=== PATIENT | female | born 1990 | race Caucasian/White ===

== ENCOUNTER → 2017-07-21 16:24 | Outpatient (CLI) | payer OTHER, SELFPAY ==
[2017-07-22 16:53] LABS: Strep Grp B PCR NEG for Grp B Strep
== END ==
PROVIDERS: Family Provider Obstetrics & Gynecology; Visit Provider Obstetrics & Gynecology
DX: Z34.82 Encounter for supervision of other normal pregnancy, second trimester (principal)
CPT/HCPCS: 87653

== ENCOUNTER 2017-08-25 08:36 | Outpatient (CLI) | payer OTHER, SELFPAY ==
--- NOTE | 2017-08-25 09:40 | PM.OBTRLD ---
Evaluation Evaluation Baseline heart rate: 135 Variability: Moderate (11-25) monitor accelerations: Present monitor decelerations: Absent
== END 2017-08-25 09:49 | disposition home or self-care (01) ==
LOC: LABOR 09:15 → OB 08-26 09:20
PROVIDERS: Family Provider Obstetrics & Gynecology; Visit Provider Obstetrics & Gynecology
DX: Z34.92 Encounter for supervision of normal pregnancy, unspecified, second trimester (principal)
CPT/HCPCS: 59025; G0378; G0379

== ENCOUNTER 2017-08-26 11:28 | Inpatient (IN) | payer OTHER, SELFPAY ==
[2017-08-26] MEDS: LACTATED RINGERS 1,000 ML 125 ML IV ×2 (13:00→18:57)
[2017-08-26 13:03] LABS: Add Manual Diff / Slide Review NO; Basophils Percent Auto 0.3 % (0-2); Eosinophils Percent Auto 1.9 % (2-4); Hematocrit 34.7 % (36-46); Mean Corpuscular HGB Conc 34.5 % (30-36); Mean Corpuscular Hemoglobin 32.1 PG (26-34); Mean Corpuscular Volume 93.2 fL (80-100); Monocytes Percent Auto 5.2 % (3-14); Neutrophils Absolute Auto 9200 /uL (3000-5900); Neutrophils Percent Auto 77.6 % (50-75); Platelet Count 168 X10^3/uL (150-400); Red Blood Cell Count 3.73 X10^6/uL (4.0-5.2); Red Cell Distribution Width 13.7 % (11.6-14.8); White Blood Cell Count 11.9 X10^3/uL (4.5-11.0)
[2017-08-26 15:46] VITALS: BP 114/75
--- NOTE | 2017-08-26 18:04 | PM.OBHP.1 ---
OB HPI Date/Time Date of admission: 08/26/17 Date Patient Seen: 08/26/17 Time Patient Seen: 11:04 History of Present Illness Chief complaint: LABOR : 3 Para: 1 Estimated Date of Delivery: 08/21/17 Estimated Gestational Age (weeks): 40+ 5 Narrative: Alta Rivero is a 27 year old female 3 para 1 at 40-,5/7 weeks gestation for induction of labor Indications Indication for induction OB: post dates History of Present care: good care Dating criteria: LMP confirmed by 1st trimester US Ultrasounds: normal 1st trimester US and normal mid trimester US Obstetrical complications: none Medical complications: none Preadmission Labs Blood type: O (+) positive -: Antibody screen: negative, GBS status: negative, HBsAG: negative, HIV: negative, HSV 1: negative, HSV 2: negative and RPR/VDLR: negative -: Chlamydia screen: not detected and Gonorrhea screen: not detected -: Rubella: immune and Varicella: immune HCT: 34.3 HCAB: negative Quad screen: Normal Urine: Negative 1 hr GTT: 128 Prior (ies) History: 1 spontaneous vaginal delivery 7 lb 9 oz boy 1 miscarriage Evaluation Evaluation Baseline heart rate: 130 Variability: Moderate (11-25) monitor accelerations: Present monitor decelerations: Absent Category of Tracing: I Cervical dilation (cm): 1 Cervical effacement (%): 80 station: -2 Laboratory results: Laboratory Tests 08/26/17 08/26/17 12:50 12:50 WBC 11.9 H RBC 3.73 L Hgb 12.0 Hct 34.7 L MCV 93.2 MCH 32.1 MCHC 34.5 RDW 13.7 Plt Count 168 Neut % (Auto) 77.6 H Lymph % (Auto) 15.0 L [place] % (Auto) 5.2 Eos % (Auto) 1.9 L Baso % (Auto) 0.3 Neut # (Auto) 9200 H Blood Type O Positive Antibody Screen Negative [facility] Social History Smoking Status: Never smoker Exam Vital Signs (past 8 hours): - 08/26/17 15:46 Blood Pressure 114/75 Narrative Exam Narrative: Generally: Well-developed, well-nourished white female, no acute distress Fundal height: 41 cm Estimated weight: 8 lb Extremities: Trace edema, negative Homans Objective Labs Result Diagrams: 08/26/17 12:50 Labs: Laboratory Results - last 24 hr 08/26/17 08/26/17 12:50 12:50 WBC 11.9 H RBC 3.73 L Hgb 12.0 Hct 34.7 L MCV 93.2 MCH 32.1 MCHC 34.5 RDW 13.7 Plt Count 168 Neut % (Auto) 77.6 H Lymph % (Auto) 15.0 L [place] % (Auto) 5.2 Eos % (Auto) 1.9 L Baso % (Auto) 0.3 Neut # (Auto) 9200 H Blood Type O Positive Antibody Screen Negative Assessment and Plan (1) 40 weeks gestation of : Current visit: Yes Status: Acute Plan: Plan: Assessment: 27-year-old 3 para 1 at 40-,5/7 weeks gestation for induction of labor Plan: Pitocin per protocol 2 Expectant management to spontaneous vaginal delivery
[2017-08-27] MEDS: miSOPROStol 25 MCG TABLET VAG ×2 (00:10→04:26)
--- NOTE | 2017-08-27 09:34 | PM.OBPNLAB ---
Date/Time Date Patient Seen: 08/27/17 Time Patient Seen: 07:35 Pain Control Pain control: tolerating well Pelvic Exam Dilation (cm): 3 Effacement (%): 90 station: -2 Amniotic membrane status: Ruptured Comments: SROM - clear Contractions Contraction pattern: Regular Contraction intensity: Strong/Firm Status status: Category l Assessment and Plan Assessment: active labor Plan: continuous present management
--- NOTE | 2017-08-27 17:22 | PM.OBPRVD ---
Narrative: Patient is a [id number]- G3P-2 who presented at 40 and 5 7 weeks gestation for induction of labor. Day prior to delivery, Pitocin was given with minimal change in her cervix. Patient did receive 2 doses of Cytotec last evening, which did affect change. At 0738 patient had spontaneous rupture of membranes of clear fluid. Patient continued to contract, but did require oxytocin to a maximum of 2 milliunits. Patient quickly progressed from about 3 and 0.5 cm to complete. Patient began stage II of labor at 12 o'clock, and began pushing at approximately 12:30 p.m. patient delivered a healthy female at 12:41 p.m.. did have a nuchal cord which was reduced at the perineum. Patient sustained a second-degree laceration which was repaired with 3 0 chromic. Patient received a oxytocin bolus immediately after delivery of the . Placenta delivered at 12:52 p.m. intact. Estimated blood loss was approximately 250 mL. Patient tolerated the procedure well.
[2017-08-28] MEDS: IBUPROFEN 600 MG TABLET PO (00:59)
[2017-08-28 06:52] LABS: Add Manual Diff / Slide Review NO; Basophils Percent Auto 0.3 % (0-2); Hematocrit 32.7 % (36-46); Hemoglobin 11.5 g/dL (12.0-16.0); Lymphocytes Percent Auto 17.8 % (25-40); Mean Corpuscular Hemoglobin 32.6 PG (26-34); Mean Corpuscular Volume 93.2 fL (80-100); Monocytes Percent Auto 6.4 % (3-14); Neutrophils Absolute Auto 7800 /uL (3000-5900); Neutrophils Percent Auto 73.5 % (50-75); Platelet Count 143 X10^3/uL (150-400); Red Blood Cell Count 3.51 X10^6/uL (4.0-5.2); Red Cell Distribution Width 13.5 % (11.6-14.8); White Blood Cell Count 10.6 X10^3/uL (4.5-11.0)
--- NOTE | 2017-08-28 09:34 | PM.OBDS.1 ---
Discharge Providers Date of admission: 08/26/17 11:28 Consults: 08/27/17 13:26 Consult to [employer] Routine Comment: Discharge provider: Mari Mir MD Discharge Date: 08/28/17 Summary Date Patient Seen: 08/28/17 Time Patient Seen: 07:35 Peripartum Data Infant Delivery Method: Natural Vaginal Procedures: Spontaneous vaginal delivery complications: none Discharge Diagnosis (1) 40 weeks gestation of : Status: Acute (2) Normal spontaneous vaginal delivery: Status: Acute Status at Discharge Functional status at discharge: independent ambulation Overall status at discharge: patient is progressing back to baseline Time Spent with Patient Total time spent providing and/or coordinating discharge services: 20 min Objective Labs Result Diagrams: 08/28/17 06:35 Labs: Laboratory Results - last 24 hr 08/28/17 06:35 WBC 10.6 RBC 3.51 L Hgb 11.5 L Hct 32.7 L MCV 93.2 MCH 32.6 MCHC 35.0 RDW 13.5 Plt Count 143 L Neut % (Auto) 73.5 Lymph % (Auto) 17.8 L [place] % (Auto) 6.4 Eos % (Auto) 2.0 Baso % (Auto) 0.3 Neut # (Auto) 7800 H Discharge Plan Discharge Plan Patient Disposition: Home, Self-Care Discharge comment: Call with fever, chills or bleeding vaginally more than a pad in an hour Ibuprofen 600mg every 6 hours as needed for cramping Discharge Med Rec/Prescriptions Prescriptions: No Action No Known Home Medications RF: 0 Follow up/Referrals: Mari Mir MD [Family Provider] - 6 Weeks Provider Discharge Instructions Diet: Diet as Tolerated Activity: No intercourse Wound Care Report to your healthcare provider any signs of infection, such as:: chills, fever, increased pain and unusual drainage Visit Report/Discharge Packet Instructions: DI for Labor and Delivery, Vaginal Discharge Data Attending Provider: Mari Mir Admit Date/Time: 08/26/17 11:28
== END 2017-08-28 12:00 | disposition home or self-care (01) | DRG 775 ==
PROVIDERS: Family Medicine; Admitting Provider Obstetrics & Gynecology; Family Provider Obstetrics & Gynecology; Visit Provider Obstetrics & Gynecology
DX: O48.0 Post-term pregnancy (principal); Z3A.40 40 weeks gestation of pregnancy; Z37.0 Single live birth; O69.81X0 Labor and delivery complicated by cord around neck, without compression, not applicable or unspecified; O70.1 Second degree perineal laceration during delivery
CPT/HCPCS: 01967; 36415; 59025; 59050; 59200; 59400; 59409; 85025; 86850; 86900; 86901; G0379

== ENCOUNTER → 2017-09-15 14:52 | Outpatient (CLI) | payer OTHER, SELFPAY ==
[2017-09-15 17:42] LABS: Bilirubin Urine UA NEGATIVE (NEGATIVE); Color Urine UA YELLOW; Glucose Urine UA NEGATIVE (Normal); Ketones Urine UA NEGATIVE (NEGATIVE); Leukocyte Esterase Urine UA 2+ (NEGATIVE); Nitrite Urine UA Negative (Negative); Occult Blood Urine UA 3+ (Negative); Protein Urine UA NEGATIVE (Negative); Specific Gravity Urine UA <=1.005 (1.000-1.035); Urobilinogen Urine UA 0.2 E.U./dL (0.2)
[2017-09-15 17:48] LABS: Appearance Urine UA SL CLOUDY
[2017-09-15 17:50] LABS: Bacteria Urine Occasional (0-1); RBC Urine 1-5/HPF (0-5/HPF); Squamous Epithelial Cell Urine 0-1 /HPF; WBC Urine 5-10/HPF (0-5/HPF)
[2017-09-15 17:51] LABS: Culture Indicated Urine Specimen Cultured
== END ==
PROVIDERS: Family Provider Obstetrics & Gynecology; Visit Provider Obstetrics & Gynecology
DX: R30.0 Dysuria (principal)
CPT/HCPCS: 81001; 87086

== ENCOUNTER → 2017-09-16 11:03 | Outpatient (CLI) | payer OTHER, SELFPAY ==
[2017-09-16 11:48] LABS: Add Manual Diff / Slide Review NO; Basophils Percent Auto 0.2 % (0-2); Eosinophils Percent Auto 0.5 % (2-4); Hematocrit 38.3 % (36-46); Lymphocytes Percent Auto 21.8 % (25-40); Mean Corpuscular HGB Conc 33.9 % (30-36); Mean Corpuscular Hemoglobin 31.3 PG (26-34); Mean Corpuscular Volume 92.3 fL (80-100); Monocytes Percent Auto 7.6 % (3-14); Neutrophils Absolute Auto 8500 /uL (3000-5900); Neutrophils Percent Auto 69.9 % (50-75); Platelet Count 235 X10^3/uL (150-400); Red Blood Cell Count 4.15 X10^6/uL (4.0-5.2); White Blood Cell Count 12.2 X10^3/uL (4.5-11.0)
== END ==
PROVIDERS: Family Provider Obstetrics & Gynecology; Visit Provider Obstetrics & Gynecology
DX: R10.9 Unspecified abdominal pain (principal); R50.9 Fever, unspecified
CPT/HCPCS: 36415; 85025

== ENCOUNTER → 2017-09-16 16:18 | Outpatient (CLI) | payer OTHER, SELFPAY ==
--- NOTE | 2017-09-16 16:21 | DI.CT.S_ITS ---
PROCEDURE: CT ABDOMEN PELVIS W CON INDICATIONS: fever, rule out septic pelvic thrombophlebitis TECHNIQUE: After the administration of oral and intravenous contrast, 5 mm thick sections acquired from the diaphragms to the symphysis. 5 mm thick coronal and sagittal reformats were performed. For radiation dose reduction, the following was used: automated exposure control, adjustment of mA and/or kV according to patient size. COMPARISON: [facility], , OB COMPLETE LESS THAN 14 WKS, 02/06/2017, 15:57. [facility], , OB COMPLETE LESS THAN 14 WKS, 01/09/2017, 17:20. [facility], , OB COMPLETE 14WKS OR MORE, 04/03/2017, 8:24. FINDINGS: Image quality: Degraded by motion artifact. ABDOMEN: Lung bases: Lung bases are clear. Heart size is normal. Solid organs: Liver is normal in size and enhancement. Gallbladder contracted. Biliary system is non-dilated. Pancreas enhances normally. Spleen is normal in size and enhancement. No adrenal nodules. Kidneys are normal in size and enhancement, without hydronephrosis. Peritoneum and bowel: Stomach, small bowel, and colon loops are normal in caliber and wall thickness. No free fluid or air. The appendix appears normal Nodes and vessels: A large retroperitoneal lymph node seen to the left of the aorta which may be reactive although technically nonspecific.. Aorta and inferior vena cava are normal in caliber. The pelvic veins are relatively decompressed although cannot exclude intraluminal thrombus given relative paucity of contrast opacification. No definite inflammatory stranding adjacent to the pelvic veins. Miscellaneous: No ventral hernias. PELVIS: Genitourinary: The uterus is enlarged and heterogeneous, presumably reflecting appearance. Anterior to the uterus and above the bladder there is a heterogeneous fluid, fat and soft tissue attenuation mass measuring 7.5 x 3.9 cm on image 88. This may be originating from the left ovary given a somewhat claw sign appearance on image 87 series 2 although technically indeterminate. Right ovary is seen on image 81 a grossly unremarkable. Miscellaneous: No inguinal hernias or adenopathy. Bones: No suspicious bony lesions. No vertebral body compression fractures. IMPRESSION: Markedly heterogeneous multiloculated fat fluid and soft tissue attenuation mass in the midline pelvis anterior to the uterus and above the bladder, potentially associated with the left ovary although this is technically indeterminate. Differential includes large dermoid, although cannot exclude unusual abscess, fat necrosis, intraovarian lesion. Recommend further evaluation with laparoscopy. Findings were personally telephoned and discussed with Dr. Mir on 09/16/17 Dictated by: Zachary Daugherty M.D. on 09/16/2017 at 18:08 Approved by: Zachary Daugherty M.D. on 09/16/2017 at 18:33
== END ==
PROVIDERS: Family Provider Obstetrics & Gynecology; Visit Provider Obstetrics & Gynecology
DX: O86.4 Pyrexia of unknown origin following delivery (principal)
CPT/HCPCS: 36415; 74177; 85025; Q9967

== ENCOUNTER 2017-09-17 18:30 | Day surgery (SDC) | payer OTHER, SELFPAY ==
[2017-09-17] VITALS (7 sets, daily range): BP systolic 92–113; BP diastolic 55–78; PULSE 76–94; RESP 10–16; TEMP 36.5–36.7; O2SAT 95–99; BMI 28.1
--- NOTE | 2017-09-17 | PATH_ITS ---
[facility] Accession Number: [id number] . 01 Material submitted: . LEFT DERMOID CYST . 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 Negative for atypia and malignancy. . . COMMENT: Case reviewed by Dr. Deirdre Ibarra, who agrees with the diagnosis. MRV/09/21/2017 . 02 Electronically signed: . Richy Parisi MD, Pathologist NPI- [id number] . 01 Gross description: . Received in formalin, labeled left dermoid cyst, is a fragmented ovarian cyst (9.8 x 7.5 x 2.0 cm in aggregate) and matted strands of hair (9.5 x 8.5 x 3.5 cm in aggregate). The cyst has a rodriguez-white smooth and shiny flat serosa and a bright white smooth flat lining with no excrescences identified. A scant amount of normal ovarian parenchyma is identified. Hoisting Laborer slice is submitted in cassettes A1-A4. ([id number]) . /[facility] . 02 Pathologist provided ICD-10: D27.1 . 02 CPT . 584816 Performed at: 01 [facility] [address], [place], [place] [id number] MD Tyler Murrieta MD Phone: [phone] Performed at: 02 [facility] [address] [place], [place] [id number] MD Aki Matta MD Phone: [phone]
--- NOTE | 2017-09-17 19:13 | P.HPOB_ITS ---
History of Present Illness Narrative: Alta Rivero is a 27 year old female with pelvic pain, fevers, and pelvic mass vaginal delivery on 08/27/2017. Patient is 3 weeks post vaginal delivery who had left abdominal pain radiating from left upper abdomen abdomen to her pubic bone beginning on August 30. She then developed a temperature to 103 with headaches and chills. She was treated with a 10 day course of Augmentin. Her fever disappeared within 24 hr and her pain was gone after approximately a day and a half. She did well until September 13 when the pain began to return. On September 15 she developed more fevers and was evaluated for urinary tract infection. She underwent a CT scan to rule out pelvic thrombophlebitis and was found to have a 7.5 x 3.9 cm heterogeneous multiloculated fat and fluid and soft tissue attenuated mass midline pelvis anterior to the uterus and above the bladder. There was a possible associated with the left ovary. Is unclear if this is a dermoid, unusual abscess, or fat necrosis. It was recommended that she have a laparoscopy to determine the nature of this mass. [facility] Social History Smoking Status: Never smoker Meds Home Medications Medication Instructions Recorded Confirmed Type No Known Home Medications 08/26/17 08/26/17 History Allergies Allergy/AdvReac Type Severity Reaction Status Date / Time No Known Drug Allergies Allergy Verified 08/26/17 19:11 Review of Systems Review of Systems Patient complains of pain making ambulation difficult. She has no nausea. Her bleeding vaginally is minimal. She is breast-feeding without difficulty. She has no constipation or diarrhea. No complaints of urinary frequency or urgency. She denies any pain in her extremities. Exam Narrative Exam Narrative: HEENT exam within normal limits. Lungs are clear to auscultation and percussion. No thyromegaly. No breast abscess apparent. Abdomen is soft with tenderness in the left upper quadrant with tenderness but no rebound suprapubically. Mild lochia without odor. Pelvic exam was not performed. Extremities without edema and nontender. Objective Imaging CT scan - abdomen: Radiologist's impression: 7.5 x 3.9 cm heterogeneous multiloculated fat fluid and soft tissue attenuation mass possibly associated with the left ovary possible dermoid, unusual abscess, fat necrosis Labs Labs: Patient's white blood cell count 12.2, hematocrit 38.3 Assessment & Plan (1) Pelvic mass: Current visit: Yes Status: Acute Plan: Assessment/Plan Narrative: Patient with fever pain and pelvic mass that may be abscess or dermoid. We will proceed with laparoscopy with removal or drainage of mass. Patient is aware that we may need to remove her ovary. Discuss the risk of damage to intestines, bladder, or ureters. Patient is aware that is small possibility we might need to open her abdomen to complete the procedure. Consent form was reviewed with the patient, a consent form signed. Postop instructions reviewed with the patient. Time Spent With Patient Time with patient: 25 - 35 minutes
[2017-09-17] MEDS: LACTATED RINGERS 1,000 ML 100 ML IV (19:32)
[2017-09-17] MEDS: CEFAZOLIN 2 GM/100 ML FROZ.PIGGY IV (19:55)
--- NOTE | 2017-09-17 20:19 | SUR.OPER ---
Supine on padded OR bed, head on pillow, arms secured on padded arm boards at <90 degrees abduction, legs uncrossed, safety belt at thigh, tape over blanket over lower legs.
[2017-09-17] MEDS: BUPIVACAINE 0.5% W/ EPI (PF) VIAL 30 ML INJ (20:29)
[2017-09-17] MEDS: LACTATED RINGERS 1,000 ML 42 ML IV (20:56)
--- NOTE | 2017-09-17 22:00 | PM.OP.1 ---
Operative Date/Time/Diagnoses Date of procedure: 09/17/17 Time of procedure: 22:00 Pre-op diagnosis: Pelvic mass 3 weeks Post-op diagnosis: same (Left ovarian dermoid) Procedure & Clinicians Procedure: Laparoscopic removal of left ovarian dermoid cyst Same procedure as scheduled: Yes Indications: Patient with fever and pelvic pain and large pelvic mass found on CT scan with unclear whether was a dermoid or abscess Surgeon: Belkys Quintanilla Click Yes if Unassisted: Yes Anesthesia Type: General Operative Notes Findings: Normal abdomen uterus and fallopian tubes with large dermoid in the left ovary Closure Type: primary Specimen(s): other (Dermoid cyst) Estimated Blood Loss (mL): 50 Procedure in detail: Patient was brought to the operating room where she underwent general anesthesia. 2 g of Ancef were in prior to beginning of the case. Pulsatile stockings were in place and functional. Warming was with blankets. Patient was prepped and draped in the usual sterile fashion. Her bladder was drained with in-and out catheter. The area of the incisions were injected with half percent Marcaine with epinephrine. An incision was made in the umbilicus with a scalpel. The incision was carried down the fascial air which was incised with scissors and held with 0 Vicryl suture. The peritoneum was entered bluntly and the Bianchi cannula was placed in the abdomen in the abdomen and insufflated with CO2. Two 5 mm trochars were placed in the right and left lower quadrant under direct visualization after incising the skin. There did not appear to be any damage with placement of the trocars. An incision was made over the ovarian cyst with monopolar cautery attached to the scissors. The cyst was shelled out with blunt and sharp dissection. This cyst was entered at 1 point allowing release of some of the contents. After complete removal of the cyst the cyst was placed in a Endo-Catch bag and brought up to umbilical incision and contents removed allowing the rest of the contents and bag to be brought up through the incision. The trocar was replaced and abdomen was irrigated copiously. Adequate hemostasis was noted. The CO2 was allowed to escape from the abdomen. The trochars were removed. The fascial layer of the umbilicus was closed with the prior placed 0 Vicryl suture. Skin was closed with 4-0 Biosyn. The patient went to recovery room in good condition. Complications: none Condition: stable Disposition: same day surgery Plan for aftercare: Home when awake and stable
[2017-09-17] MEDS: OXYCODONE/ACETAMINOPHEN 5/325 TABLET 1 TAB PO (22:20)
== END 2017-09-17 22:53 | disposition home or self-care (01) ==
LOC: OR 18:31 → AC 21:07
PROVIDERS: Family Provider Obstetrics & Gynecology; PCP Obstetrics & Gynecology; Visit Provider Specialist
PROC: (CPT 58662; principal; 2017-09-17 18:00)
DX: D27.1 Benign neoplasm of left ovary (principal)
CPT/HCPCS: 58662; J0690; J1100; J1885; J2405; J2704; J3010

== ENCOUNTER → 2018-06-25 13:25 | Outpatient (CLI) | payer OTHER, SELFPAY ==
[2018-06-25 19:46] LABS: Urine N gonorrhoeae NOT DETECTED
[2018-06-25 20:04] LABS: Urine Chlamydia NOT DETECTED
== END ==
PROVIDERS: Family Provider Obstetrics & Gynecology; PCP Obstetrics & Gynecology; Visit Provider Obstetrics & Gynecology
DX: Z11.3 Encounter for screening for infections with a predominantly sexual mode of transmission (principal); Z11.8 Encounter for screening for other infectious and parasitic diseases
CPT/HCPCS: 87491; 87591

== ENCOUNTER → 2018-08-24 15:43 | Outpatient (CLI) | payer OTHER, SELFPAY ==
[2018-08-24 16:16] LABS: Appearance Urine UA CLEAR; Bilirubin Urine UA NEGATIVE (NEGATIVE); Color Urine UA YELLOW; Glucose Urine UA NEGATIVE (Negative); Ketones Urine UA NEGATIVE (NEGATIVE); Leukocyte Esterase Urine UA 1+ (NEGATIVE); Nitrite Urine UA NEGATIVE (Negative); Occult Blood Urine UA NEGATIVE (Negative); Protein Urine UA NEGATIVE (Negative); Specific Gravity Urine UA 1.025 (1.000-1.035); Urobilinogen Urine UA 0.2 E.U./dL (0.2); pH Urine UA 6.5 (4.5-8.0)
[2018-08-24 16:18] LABS: Add Manual Diff / Slide Review NO; Basophils Absolute Auto 0 /uL (0-100); Basophils Percent Auto 0.5 % (0-2); Eosinophils Absolute Auto 200 /uL (0-450); Eosinophils Percent Auto 1.9 % (2-4); Hematocrit 36.9 % (36-46); Hemoglobin 12.9 g/dL (12.0-16.0); Lymphocytes Absolute Auto 1800 /uL (1100-4500); Mean Corpuscular Hemoglobin 31.7 PG (26-34); Mean Corpuscular Volume 90.4 fL (80-100); Monocytes Absolute Auto 400 /uL (0-900); Neutrophils Absolute Auto 7400 /uL (1500-7000); Neutrophils Percent Auto 75.6 % (50-75); Platelet Count 199 X10^3/uL (150-400); Red Blood Cell Count 4.08 X10^6/uL (4.0-5.2); White Blood Cell Count 9.8 X10^3/uL (4.5-11.0)
[2018-08-24 16:24] LABS: Bacteria Urine Few (2-10); Mucus Urine 1+ (Negative); RBC Urine 0-1/HPF (0-5/HPF); Squamous Epithelial Cell Urine 10-30 /HPF (0-5/HPF); Transitional Epi Cells Urine 0-1/HPF (0-5/HPF); WBC Urine 1-5/HPF (0-5/HPF)
[2018-08-24 17:12] LABS: Hepatitis B Surface Antigen NEGATIVE s/c (NEGATIVE); Rubella Antibody IgG > 350.0 IU/mL (>15)
[2018-08-24 17:29] LABS: HIV 1 and 2 Antibody NEGATIVE (NEGATIVE); Hep C Virus Ab w/Reflex Quant NEGATIVE s/c (NEGATIVE)
[2018-08-26 16:54] LABS: RPR Screen Nonreactive (Nonreactive)
[2018-08-31 16:15] LABS: AFP, Serum 25.3 ng/mL; Calc Gestational Age 17.7; Est Date Determined by US; Maternal Weight 200 lbs; Mother Ethnic Origin CAUCASIAN; Number of Fetuses 1; Prev Pregnancies Down Syndrome NOT GIVEN
== END ==
PROVIDERS: Family Provider Obstetrics & Gynecology; PCP Obstetrics & Gynecology; Visit Provider Obstetrics & Gynecology
DX: Z34.82 Encounter for supervision of other normal pregnancy, second trimester (principal)
CPT/HCPCS: 36415; 80055; 81003; 81015; 82105; 86703; 86787; 86803; 86850; 86900; 86901; 87086

== ENCOUNTER → 2018-09-27 12:19 | Outpatient (CLI) | payer OTHER, SELFPAY ==
--- NOTE | 2018-09-27 12:20 | DI.US.S_ITS ---
PROCEDURE: US OB >= 14 WEEKS FETUS INDICATIONS: ANATOMY OUTSIDE/PRIOR DATING DATA: Last menstrual period (LMP): Not available. LMP-based estimated date of delivery (AILYN): Not available. First dating scan (date and location): 06/25/2018. Estimated date of delivery (AILYN) from first dating scan: 01/31/2019. TECHNIQUE: Real-time scanning was performed of the fetus, with image documentation and biometric measurements. Endovaginal scanning: Not performed COMPARISON: [facility], OB >= 14 WEEKS FETUS, 07/08/2017, 16:59. [facility], OB <= 14 WEEKS FETUS, 06/25/2018, 13:49. FINDINGS: General: A single living intrauterine gestation is present. Presentation: Transverse, head to the left. Placenta: Placental position is anterior, without previa. Amniotic fluid index: 12.6 cm, normal range is 5-24 cm. heart rate: 145 beats per minute. Maternal cervical canal: 3.6 cm long. Normal lower limit is 2.5 cm. biometrics: Biparietal diameter: 20 weeks and 3 days Head circumference: 21 weeks 0 day Abdominal circumference: 21 weeks 0 day Femur length: 22 weeks 0 day Estimated gestational age from initial scan: 22 weeks 0 day. Composite gestational age from present scan: 21 weeks one day Estimated weight and percentile: 419, 17% Measurement variability for biometric dating: +/- 7 days from 14 weeks to 15 weeks 6 days gestation, +/- 10 days from 16 weeks to 21 weeks 6 days gestation, +/- 2 weeks from 22 weeks to 27 weeks 6 days gestation, +/- 3 weeks for 28 weeks gestation or later. weight reference: 4500 g or EFW >90/95% is considered macrosomia or large for gestational age. EFW <10% is small for gestational age. EFW 5% or less is considered intra-uterine growth restriction. Anatomic survey: Neuro: Ventricles are non-dilated at less than 10 mm. Cisterna magna is normal at 3-11 mm. Cerebellum is normal in size and morphology. Nuchal skin fold: Normal at less than 6 mm between 14-21 weeks gestational age. Face: Nose and lips, facial profile are normal. Spine: No evidence for spina bifida. Heart: 4-chambered heart is present, with normal ventricular outflow tracts. Diaphragm: Diaphragm is intact. Stomach: Left-sided stomach is present. Kidneys: No hydronephrosis. Normal is less than 5 mm in 2nd trimester, less than 7 mm in 3rd trimester. Cord: 3-vessel cord has orthotopic insertion. Bladder: Normal in size. Extremities: All 4 extremities identified. IMPRESSION: 1. A single living intrauterine gestation with the interval growth within normal limits 2. Normal anatomic survey. Dictated by: Jazzmine Landry M.D. on 09/27/2018 at 17:35 Approved by: Jazzmine Landry M.D. on 09/27/2018 at 17:39
== END ==
PROVIDERS: PCP Obstetrics & Gynecology; Visit Provider Obstetrics & Gynecology
DX: Z34.82 Encounter for supervision of other normal pregnancy, second trimester (principal); Z36.89 Encounter for other specified antenatal screening; Z3A.21 21 weeks gestation of pregnancy
CPT/HCPCS: 76811

== ENCOUNTER → 2018-10-27 11:52 | Outpatient (CLI) | payer OTHER, SELFPAY ==
[2018-10-27 13:52] LABS: Hematocrit 34.4 % (36-46); Hemoglobin 11.9 g/dL (12.0-16.0)
[2018-10-27 14:33] LABS: GTT (PREG) 1 Hour PP 50gm Dose 124 mg/dL (76-139)
== END ==
PROVIDERS: PCP Obstetrics & Gynecology; Visit Provider Obstetrics & Gynecology
DX: Z34.82 Encounter for supervision of other normal pregnancy, second trimester (principal); Z3A.26 26 weeks gestation of pregnancy
CPT/HCPCS: 36415; 82950; 85014; 85018

== ENCOUNTER → 2018-12-28 09:40 | Outpatient (CLI) | payer OTHER, SELFPAY ==
[2018-12-29 12:05] LABS: Strep Grp B PCR NEG for Grp B Strep
== END ==
PROVIDERS: PCP Obstetrics & Gynecology; Visit Provider Obstetrics & Gynecology
DX: Z34.83 Encounter for supervision of other normal pregnancy, third trimester (principal); Z36.85 Encounter for antenatal screening for Streptococcus B; Z3A.35 35 weeks gestation of pregnancy
CPT/HCPCS: 87653

== ENCOUNTER 2019-01-30 20:08 | Inpatient (IN) | payer OTHER, SELFPAY ==
[2019-01-30] MEDS: miSOPROStoL 25 MCG TABLET VAG (21:19)
[2019-01-30 22:19] LABS: Add Manual Diff / Slide Review NO; Basophils Absolute Auto 0 /uL (0-100); Basophils Percent Auto 0.3 % (0-2); Eosinophils Absolute Auto 200 /uL (0-450); Eosinophils Percent Auto 2.5 % (2-4); Hemoglobin 11.2 g/dL (12.0-16.0); Lymphocytes Absolute Auto 2000 /uL (1100-4500); Lymphocytes Percent Auto 22.2 % (25-40); Mean Corpuscular HGB Conc 34.9 % (30-36); Mean Corpuscular Hemoglobin 32.2 PG (26-34); Mean Corpuscular Volume 92.2 fL (80-100); Monocytes Absolute Auto 700 /uL (0-900); Monocytes Percent Auto 8.1 % (3-14); Neutrophils Absolute Auto 6100 /uL (1500-7000); Neutrophils Percent Auto 66.9 % (50-75); Platelet Count 165 X10^3/uL (150-400); Red Blood Cell Count 3.47 X10^6/uL (4.0-5.2); Red Cell Distribution Width 13.6 % (11.6-14.8); White Blood Cell Count 9.1 X10^3/uL (4.5-11.0)
[2019-01-30 22:38] VITALS: BP 121/85
--- NOTE | 2019-01-31 09:10 | PM.OBHP.1 ---
OB HPI Date/Time Date of admission: 01/30/19 Date Patient Seen: 01/31/19 Time Patient Seen: 09:11 History of Present Condition Chief complaint: : 4 Para: 2 Estimated Date of Delivery: 01/27/19 Estimated Gestational Age (weeks): 40 Narrative: Alta Rivero is a 28 year old female Indications Indication for induction OB: post dates History of Present care: good care Dating criteria: LMP confirmed by 1st trimester US Ultrasounds: normal mid trimester US Obstetrical complications: none Medical complications: none Preadmission Labs Blood type: O (+) positive -: Antibody screen: negative, GBS status: negative, HBsAG: negative, HIV: negative and RPR/VDLR: negative -: Chlamydia screen: not detected and Gonorrhea screen: not detected -: Rubella: immune Cell-free DNA: negative for aneuploidy Urine: neg 1 hr GTT: 124 Narrative: This patient is a 28yo @40+4 presenting for scheduled postdates induction, s/p 1x vaginal cytotec overnight and now for transition to pitocin. Patient reports irregular painful contractions, otherwise feeling well with no complaints obstetrical or otherwise. Reports an uncomplicated , no obstetrical complications in either prior delivery. Prior (ies) History: G1- SAB, 2015 G2- , 39 weeks, 7#9, M, epidural, [facility] G3- , 40 wks, 8#8, F, epidural, IH Evaluation Evaluation Baseline heart rate: 130 Variability: Average (6-10) monitor accelerations: Present Uterine Contraction Intensity: Mild Category of Tracing: I Cervical dilation (cm): 1 Cervical effacement (%): 50 station: -2 Laboratory results: Laboratory Tests 01/30/19 01/30/19 22:00 22:00 WBC 9.1 RBC 3.47 L Hgb 11.2 L Hct 32.0 L MCV 92.2 MCH 32.2 MCHC 34.9 RDW 13.6 Plt Count 165 Neut % (Auto) 66.9 Lymph % (Auto) 22.2 L [place] % (Auto) 8.1 Eos % (Auto) 2.5 Baso % (Auto) 0.3 Neut # (Auto) 6100 Lymph # (Auto) 2000 [place] # (Auto) 700 Eos # (Auto) 200 Baso # (Auto) 0 Blood Type O Positive Antibody Screen Negative [facility] Surgical History (Updated 01/31/19 @ 09:57 by Namita Deng MD) H/O ovarian cystectomy (Acute) Social History household members: spouse and children Smoking Status: Never smoker Meds Home Medications and Allergies Allergies Allergy/AdvReac Type Severity Reaction Status Date / Time No Known Drug Allergies Allergy Verified 01/30/19 21:02 Review of Systems Constitutional Constitutional: Reports system reviewed and no additional complaints, except as documented Cardiovascular Cardiovascular: Reports system reviewed; no additional complaints, except as documented Respiratory Respiratory: Reports system reviewed and no additional complaints, except as documented Gastrointestinal Gastrointestinal: Reports system reviewed and no additional complaints, except as documented Genitourinary Genitourinary: Reports as per HPI Neurologic Neurologic: Reports system reviewed and no additional complaints, except as documented Exam Vital Signs (past 8 hours): 114/70, HR 82, 36.7C Const General: cooperative, healthy appearing and comfortable GI Inspection: obesity Palpation: No tender Objective Labs Result Diagrams: 01/30/19 22:00 Labs: Laboratory Results - last 24 hr 01/30/19 01/30/19 22:00 22:00 WBC 9.1 RBC 3.47 L Hgb 11.2 L Hct 32.0 L MCV 92.2 MCH 32.2 MCHC 34.9 RDW 13.6 Plt Count 165 Neut % (Auto) 66.9 Lymph % (Auto) 22.2 L [place] % (Auto) 8.1 Eos % (Auto) 2.5 Baso % (Auto) 0.3 Neut # (Auto) 6100 Lymph # (Auto) 2000 [place] # (Auto) 700 Eos # (Auto) 200 Baso # (Auto) 0 Blood Type O Positive Antibody Screen Negative Assessment and Plan Assessment and Plan Assessment and Plan narrative: This patient is a 28yo @40+4 admitted for IOL for postdates. She is cephalic by ultrasound this AM, and is to be induced with pitocin per protocol. Patient for epidural upon request. - cEFM, toco - clear liquid diet - ambulation encouraged prior to epidural
[2019-01-31] MEDS: LACTATED RINGERS 1,000 ML 100 ML IV (09:24)
[2019-01-31] MEDS: OXYTOCIN PREMIX 30 UNIT/500 ML PLAST..BAG IV (09:24)
--- NOTE | 2019-01-31 15:55 | PM.AN.REGBLK ---
Regional Block Pre-procedure Procedure: Continuous Lumbar Epidural for L&D Attending OB provider: Belkys Quintanilla PMH/ROS narrative: term labor induction. Healthy , no complications. Hx: No personal or family history of anesthesia problems. PSH/Anesthesia history narrative: Previous with epidurals, no complications Exam narrative: WNWD NAD CTA RRR ASA Class: II Labs: Hct 32.0 % (36-46) L 01/30/19 22:00 Plt Count 165 X10^3/uL (150-400) 01/30/19 22:00 Medications: Current Medications Generic Name Dose Route Start Last Admin Trade Name Freq PRN Reason Stop Dose Admin Lactated Ringer's 1,000 mls @ 100 mls/hr 01/30/19 21:00 01/31/19 09:24 Lactated Ringers IV 100 mls/hr CONT JON Administration FENT 2MCG/ML BUPIV 0.125% EPI 200 mcg in 100 mls @ 10 mls/hr 01/31/19 07:45 Fentanyl/Bupiv/Ns 2mcg/Ml - 0.125% EPIDURAL CONT JON Oxytocin/Lactated Ringer's 30 unit in 500 mls @ 3 mls/hr 01/31/19 09:08 01/31/19 09:24 Oxytocin Premix IV 3 milliunit/min TITRATE JON 3 mls/hr Administration Protocol 3 MILLIUNIT/MIN Misoprostol 25 mcg 01/30/19 21:00 Cytotec VAG Q4HR JON Allergies: Allergies Allergy/AdvReac Type Severity Reaction Status Date / Time No Known Drug Allergies Allergy Verified 01/30/19 21:02 --: CSE: 27g Pencan through Hustead. Clear CSF. 1mL 0.25% bupiv MPF. Procedure Insertion date: 01/31/19 Insertion time: 12:00 Prep/Local: betadine x3 and 1% lidocaine Interspace: L2-3 Patient position: sitting Needle: 18 gauge Hustead Loss of resistance with: saline LALITA at (cm): 5 Catheter placed at SKIN (cm): 10 Catheter in SPACE (cm): 5 Sensory level: T8-L5 Initial Medications TEST DOSE time: 11:57 Infusion INFUSION: 0.125% bupivacaine and with fentanyl 2 mcg/mL Initial rate (mL/hr): 10 Post-procedure Anesthesia time START: 11:45 Anesthesia time END: 14:55 Post-procedure Anesthesia Assessment: Yes CV function: HR/BP stable and Yes Resp function: RR/sat/airway adequate
--- NOTE | 2019-01-31 16:26 | PM.OBPRVD ---
Labor & Delivery Delivery date: 01/31/19 Intrapartal events: None Cervical ripening method: per misoprostal protocol Induction method: per pitocin protocol Delivery monitor: external FHT and external uterine Route of delivery: L&D Laceration Description: Perineal - 1st Degree Delivery repair: chromic (3-0) Estimated blood loss (mL): 200 Anesthesia type: Epidural Narrative: Patient was admitted to Labor and delivery for induction for maternal discomfort, and postdates. She received Prostin followed by Pitocin. She received an epidural catheter for pain control. She had a spontaneous vaginal delivery over an intact perineum. The infant was placed on the maternal abdomen. There was a shoulder cord. After the cord stopped pulsating the cord was clamped, cut, and cord bloods obtained. The placenta delivered spontaneously, intact, with 3 vessels. There were no cervical or vaginal tears. A first-degree perineal tear was repaired with 3 0 chromic suture. Estimated blood loss 200 cc. Female infant had Apgars of 8 9 and weighed 7 lb 11 oz. Both mother doing well. Baby 1: Infant gender: Female Presentation: vertex position: Right Occiput Anterior Placenta delivery description: Spontaneous cord vessel description: 3 Vessels score (1 min): 8 score (5 min): 9 Plan for aftercare: Routine care
[2019-02-01] MEDS: IBUPROFEN 600 MG TABLET PO ×2 (06:24→13:04)
[2019-02-01 06:58] LABS: Hematocrit 34.3 % (36-46); Hemoglobin 11.6 g/dL (12.0-16.0)
[2019-02-01] MEDS: DOCUSATE 100 MG CAPSULE PO (08:41)
--- NOTE | 2019-02-01 09:42 | P.DS_ITS ---
Discharge Providers Provider Date of admission: 01/30/19 20:08 Discharge Date: 02/01/19 Primary care physician: Mari Mir MD Consults: 02/01/19 16:24 Consult to Space Control Supervisor Routine Comment: Discharge provider: Belkys Quintanilla MD Summary Hospital Course Date Patient Seen: 02/01/19 Time Patient Seen: 09:00 Procedures: Prostin followed by Pitocin induction, epidural catheter, vaginal delivery, repair of first-degree tear Hospital Course: Patient arrived on Labor and delivery for induction for post dates and maternal discomfort. She received Prostaglandin followed by Pitocin induction. She received an epidural catheter for pain control. She had a spontaneous delivery of a viable female . Both infant mother did well . Peripartum Data Infant Delivery Method: Natural Vaginal Laceration description: Perineal - 1st Degree complications: none [place] 1: Gender: Female Disposition of : home Discharge Diagnosis (1) Vaginal delivery: Status: Acute Status at Discharge Cognitive/behavioral status at discharge: oriented Functional status at discharge: independent ambulation Overall status at discharge: patient is progressing back to baseline Time Spent with Patient Time attestation: Total time spent providing and/or coordinating discharge services: Time spent: Less than 30 minutes Objective Labs Result Diagrams: 02/01/19 06:32 Labs: Laboratory Results - last 24 hr 02/01/19 06:32 Hgb 11.6 L Hct 34.3 L Exam Vital Signs (past 8 hours): Blood pressure 112/78, pulse of 86, temperature 98? Narrative Exam Narrative: Abdomen is soft, nontender. Uterus is firm, at U, nontender. Mild lochia. Extremities without edema and nontender. Patient's blood type is O positive, she is rubella immune, she received the Tdap in the 3rd trimester. Discharge Plan Discharge Plan Patient Disposition: Home Discharge orders & Medications Prescriptions: New ibuprofen 600 mg Tablet 600 mg PO Q6HR PRN (Reason: Pain, Mild (1-3)) Qty: 30 RF: 0 Follow up/Referrals: Mari Mir MD [Primary Care Provider] - 6 Weeks Diet/Activity/Treatments Diet: Regular Activity: Nothing in vagina for 6 weeks Skin/Wound/Dressing Care Report to your healthcare provider any signs of infection, such as:: chills, fever and increased pain Discharge Data Primary Care Provider: Mari Mir
[2019-02-01 14:31] VITALS: BP 115/77; PULSE 88; RESP 16; TEMP 36.8
== END 2019-02-01 15:40 | disposition home or self-care (01) | DRG 807 ==
PROVIDERS: Specialist; Admitting Provider Obstetrics & Gynecology; PCP Obstetrics & Gynecology; Visit Provider Obstetrics & Gynecology
DX: O48.0 Post-term pregnancy (principal); Z37.0 Single live birth; Z3A.40 40 weeks gestation of pregnancy; O70.0 First degree perineal laceration during delivery
CPT/HCPCS: 01967; 36415; 59050; 59200; 59400; 59409; 85014; 85018; 85025; 86850; 86900; 86901; G0379; J2590

== ENCOUNTER → 2021-09-19 15:09 | Outpatient (CLI) | payer OTHER, SELFPAY ==
--- NOTE | 2021-09-19 15:11 | DI.US.S_ITS ---
PROCEDURE: US PELVIC COMPLETE INDICATIONS: Pelvic pain TECHNIQUE: Real-time scanning was performed of the pelvic organs, with image documentation. Additional endovaginal scanning was necessary due to incomplete visualization of the adnexal and endometrial structures by transabdominal scanning. COMPARISON: [facility], CT, CT ABDOMEN PELVIS W CON, 09/16/2017, 17:33. FINDINGS: Uterus: Uterus is anteverted and normal in size at 10.8 x 5.2 x 5.5 cm. The myometrium is homogeneous. The endometrium measures 9 mm combined thickness. Ovaries: The right ovary measures 3.2 x 2.6 x 3.9 cm and demonstrates a dominant cystic follicle that measures up to 17 mm, which is considered be within physiologic limits. The left ovary measures 2.8 x 1.8 x 2.8 cm. The ovaries have a normal sonographic appearance. Normal appearing arterial waveforms are confirmed to each ovary. No adnexal masses are seen. Other: No pathologic free abdominal or pelvic fluid. IMPRESSION: No significant pelvic ultrasound abnormality can be seen. We strive to produce accurate, complete, and clear reports of imaging services. To assist us in improving patient care, this report was composed using standard report templates and voice recognition software. Therefore, it may contain abnormal punctuation, insertions and/or omissions. Occasional wrong-word or sound-alike substitutions may occur. Though we review the report and make efforts to correct it, we do recommend that the report be read carefully in proper context to recognize any text inaccuracies. Dictated by: Alexei Chapman M.D. on 09/19/2021 at 15:46 Approved by: Alexei Chapman M.D. on 09/19/2021 at 15:47
== END ==
PROVIDERS: PCP Obstetrics & Gynecology; Referring Provider Obstetrics & Gynecology; Visit Provider Obstetrics & Gynecology
DX: R10.2 Pelvic and perineal pain (principal); R14.0 Abdominal distension (gaseous)
CPT/HCPCS: 76856

== ENCOUNTER → 2021-10-21 15:04 | Outpatient (CLI) | payer OTHER, SELFPAY ==
[2021-10-21 16:40] LABS: Progesterone, Total 5.43 ng/mL
[2021-10-21 16:56] LABS: Estradiol, Total 59.4 pg/mL
[2021-10-28 13:07] LABS: Percent Free Testosterone 3.05 % (0.50-2.80); Testosterone Free 0.82 ng/dL (0.10-0.85); Testosterone Total 26.9 ng/dL (10.0-55.0)
== END ==
PROVIDERS: PCP Obstetrics & Gynecology; Referring Provider Obstetrics & Gynecology; Visit Provider Obstetrics & Gynecology
DX: N92.6 Irregular menstruation, unspecified (principal)
CPT/HCPCS: 36415; 82670; 84144; 84402; 84403

== ENCOUNTER → 2021-11-06 09:48 | Outpatient (CLI) | payer OTHER, SELFPAY ==
--- NOTE | 2021-11-06 09:50 | DI.US.S_ITS ---
PROCEDURE: US ABDOMEN LIMITED INDICATIONS: RUQ PAIN TECHNIQUE: Real-time focused scanning was performed of the abdomen, with image documentation. COMPARISON: [facility], CT, CT ABDOMEN PELVIS W CON, 09/16/2017, 17:33. FINDINGS: Liver length of 15.6 cm. Unremarkable hepatic echotexture. No suspicious focal liver lesion is visualized. No gallstones, gallbladder wall thickening, or sonographic Aguilar sign. No biliary ductal dilation. Extrahepatic bile duct measures 3 mm. Visualized portions of the pancreas are unremarkable sonographically. IMPRESSION: No cholelithiasis or evidence of acute cholecystitis. Dictated by: Cruz Goodwin M.D. on 11/06/2021 at 21:40 Approved by: Cruz Goodwin M.D. on 11/06/2021 at 21:44
--- NOTE | 2021-11-06 09:50 | DI.US.S_ITS ---
PROCEDURE: US PELVIC COMPLETE INDICATIONS: pelvic pain TECHNIQUE: Real-time scanning was performed of the pelvic organs, with image documentation. Additional endovaginal scanning was necessary due to incomplete visualization of the adnexal and endometrial structures by transabdominal scanning. COMPARISON: [facility], US, US PELVIC COMPLETE, 09/19/2021, 16:19. FINDINGS: Uterus: Uterus is anteverted and normal in size at 8.0 x 5.0 x 6.5 cm. The myometrium is homogeneous. The endometrium measures 9.7 mm combined thickness. Ovaries: The right ovary measures 4.2 x 2.5 x 2.9 cm, with a calculated ovarian volume of 15.8 cc. The left ovary measures 2.8 x 1.5 x 2.7 cm, with a calculated ovarian volume of 6.0 cc. The ovaries have a normal sonographic appearance. Greater than 12 follicles present in both ovaries. No adnexal masses are seen. Other: No pathologic free abdominal or pelvic fluid. IMPRESSION: 1. Greater than 12 follicles noted in each ovary. This finding has been correlated with polycystic ovarian syndrome in the proper clinical setting. 2. Otherwise unremarkable ultrasound the pelvis Approved by: Michael Jacome M.D. on 11/06/2021 at 15:22
== END ==
PROVIDERS: Referring Provider Obstetrics & Gynecology; Visit Provider Obstetrics & Gynecology
DX: R10.2 Pelvic and perineal pain (principal); Z87.42 Personal history of other diseases of the female genital tract; R10.9 Unspecified abdominal pain; R63.0 Anorexia; E28.2 Polycystic ovarian syndrome
CPT/HCPCS: 76705; 76830; 76856; 93975

== ENCOUNTER → 2021-12-17 07:28 | Outpatient (CLI) | payer OTHER, SELFPAY | PROVIDERS: Visit Provider Registered Nurse | DX: J02.9 Acute pharyngitis, unspecified (principal) | CPT/HCPCS: 87070 ==

== ENCOUNTER → 2022-04-14 16:51 | Outpatient (CLI) | payer OTHER, SELFPAY | PROVIDERS: Visit Provider Nurse Practitioner Family | DX: R35.0 Frequency of micturition (principal) | CPT/HCPCS: 87086 ==

== ENCOUNTER 2022-08-12 12:43 | Emergency (ER) | payer OTHER, SELFPAY ==
[2022-08-12 12:54] VITALS: BP 122/78; PULSE 63; RESP 14; TEMP 35.8; O2SAT 100; BMI 23.8
[2022-08-12 13:31] LABS: Bacteria Urine None Seen; Culture Indicated Urine Cult Not Indicated; RBC Urine None Seen (0-5/HPF); Squamous Epithelial Cell Urine 1-5 /HPF (0-5/HPF); WBC Urine 1-5/HPF (0-5/HPF)
--- NOTE | 2022-08-12 15:31 | ED.ABDPAIN ---
HPI - Abdominal Pain <Tavia Lange PA-C - Last Filed: 08/12/22 17:17> General Chief Complaint: Abdominal Pain Stated Complaint: abd pain increasing pain Time Seen by Provider: 08/12/22 15:23 Source: patient Mode of arrival: Ambulatory History of Present Illness HPI narrative: 32-year-old female with past medical history ovarian cysts presents to the ED with worsening abdominal pain. Patient states that she has had the lower abdominal pain for several months, however has noticed some worsening recently. Patient denies fever, chills, chest pain, shortness of breath, nausea, vomiting, dysuria, lightheadedness, dizziness, syncope. Patient states that she also has some pain which she describes as beneath her ribs on the left side and towards the back. Patient is requesting a CT abdomen pelvis for the abdominal pain. Patient is currently being worked up for adrenal insufficiency by her primary care doctor at [facility], since patient's daughter has adrenal insufficiency. Patient's blood work all within normal limits from July 22, 2022. Related Data Home Medications Medication Instructions Recorded Confirmed No Known Home Medications 12/17/21 04/14/22 Allergies Allergy/AdvReac Type Severity Reaction Status Date / Time No Known Drug Allergies Allergy Verified 08/12/22 12:54 Review of Systems <Tavia Lange PA-C - Last Filed: 08/12/22 17:17> Review of Systems ROS Unobtainable: All systems reviewed & are unremarkable except as noted in HPI and below Constitutional Constitutional: Denies chills, Denies fatigue, Denies fever(s), Denies frequent falls, Denies lethargy and Denies weakness Eyes Eyes: Denies change in vision, Denies eye discharge, Denies irritation and Denies loss of vision ENT Ears, Nose, Mouth, and Throat: Denies change in voice, Denies dizziness, Denies neck pain, Denies sore throat and Denies throat swelling Cardiovascular Cardiovascular: Denies chest pain, Denies irregular heart rhythm, Denies lightheadedness, Denies palpitations, Denies dyspnea, Denies dyspnea on exertion and Denies orthopnea Respiratory Respiratory: Denies cough, Denies dyspnea, Denies dyspnea on exertion and Denies wheezing Gastrointestinal Gastrointestinal: Reports abdominal pain, Denies change in bowel habits, Denies diarrhea, Denies nausea and Denies vomiting Genitourinary Genitourinary: Denies hematuria, Denies flank pain, Denies urinary incontinence and Denies urinary urgency Musculoskeletal Musculoskeletal: Denies back pain, Denies muscle weakness, Denies neck pain, Denies numbness and Denies tingling Integumentary/Breasts Skin/Breast: Denies pruritus, Denies erythema, Denies rash and Denies wounds Neurologic Neurologic: Denies behavioral changes, Denies confusion, Denies dizziness, Denies frequent falls, Denies loss of vision, Denies numbness, Denies tingling and Denies weakness Psychiatric Psychiatric: Denies anxiety, Denies behavioral changes, Denies confusion, Denies depression, Denies homicidal ideation and Denies suicidal ideation Endocrine Endocrine: Denies fatigue, Denies flushing and Denies palpitations Hematologic/Lymphatic Hematologic/Lymphatic: Denies easy bruising Allergic/Immunologic Allergic/Immunologic: Denies urticaria, Denies throat swelling and Denies wheezing Patient History <Tavia Lange PA-C - Last Filed: 08/12/22 17:17> Surgical History H/O ovarian cystectomy Social History household members: spouse and children Smoking Status: Current every day smoker Smoking Status: Current every day smoker tobacco type: vaping alcohol intake frequency: holidays/special occasions only Substance Use Type: does not use Exam <Tavia Lange PA-C - Last Filed: 08/12/22 17:17> Narrative Exam Narrative: Const General:?cooperative, healthy appearing and comfortable [facility] Head:?normal to inspection Ears:?hearing grossly normal bilaterally Nose:?external nose normal Face and sinus:?normal facial exam and sinuses nontender Mouth:?oral mucosae normal Throat:?posterior oropharynx normal Eyes General:?appearance normal, both eyes and all related structures Neck Neck:?normal visual inspection and no lymphadenopathy noted Resp Effort & Inspection:?normal respiratory effort Auscultation:?clear to auscultation bilaterally Cardio Rate:?regular rate Rhythm:?regular rhythm GI Abdomen is soft, nondistended, nontender to palpation. There is no CVA tenderness to palpation. Neuro General:?patient alert, patient awake and patient oriented x3 Initial Vital Signs Initial Vital Signs: Vital Signs Temperature 96.5 F L 08/12/22 12:54 Pulse Rate 63 08/12/22 12:54 Respiratory Rate 14 08/12/22 12:54 Blood Pressure 122/78 08/12/22 12:54 Pulse Oximetry 100 08/12/22 12:54 Oxygen Delivery Method Room Air 08/12/22 12:54 <Ashley Patino DO - Last Filed: 08/12/22 20:57> Initial Vital Signs Initial Vital Signs: Vital Signs Temperature 96.5 F L 08/12/22 12:54 Pulse Rate 63 08/12/22 12:54 Respiratory Rate 14 08/12/22 12:54 Blood Pressure 122/78 08/12/22 12:54 Pulse Oximetry 100 08/12/22 12:54 Oxygen Delivery Method Room Air 08/12/22 12:54 Course <Tavia Lange PA-C - Last Filed: 08/12/22 17:17> Orders Ordered: ED Orders 08/12/22 13:00 Urine Microscopic Stat 08/12/22 15:20 Complete Blood Count AUTO DIFF Stat Comprehensive Metabolic Panel Stat Lipase Stat 08/12/22 15:44 CT abdomen pelvis w con Stat Vital Signs Vital signs: Vital Signs - 8 hr 08/12/22 12:54 Temperature 96.5 F L Pulse Rate 63 Respiratory Rate 14 Blood Pressure 122/78 Pulse Oximetry 100 Oxygen Delivery Method Room Air <Ashley Patino DO - Last Filed: 08/12/22 20:57> Orders Ordered: ED Orders 08/12/22 13:00 Urine Microscopic Stat 08/12/22 15:20 Complete Blood Count AUTO DIFF Stat Comprehensive Metabolic Panel Stat Lipase Stat 08/12/22 15:44 CT abdomen pelvis w con Stat Vital Signs Vital signs: Vital Signs - 8 hr 08/12/22 12:54 Temperature 96.5 F L Pulse Rate 63 Respiratory Rate 14 Blood Pressure 122/78 Pulse Oximetry 100 Oxygen Delivery Method Room Air MDM - Abdominal Pain <JIAN Shah Last Filed: 08/12/22 17:17> Lab Data 08/12/22 15:20 08/12/22 15:20 Labs: Lab Results 08/12/22 08/12/22 08/12/22 Range/Units 13:00 15:20 15:20 WBC 8.3 (4.5-11.0) X10^3/uL RBC 4.13 (4.0-5.2) X10^6/uL Hgb 13.1 (12.0-16.0) g/dL Hct 37.8 (36-46) % MCV 91.7 (80-100) fL MCH 31.7 (26-34) PG MCHC 34.6 (30-36) % RDW 12.7 (11.6-14.8) % Plt Count 247 (150-400) X10^3/uL Neut % (Auto) 71.0 (50-75) % Lymph % (Auto) 24.2 L (25-40) % [place] % (Auto) 4.4 (3-14) % Eos % (Auto) 0.3 L (2-4) % Baso % (Auto) 0.1 (0-2) % Neut # (Auto) 5900 (0435-9451) /uL Lymph # (Auto) 2000 (4387-9648) /uL [place] # (Auto) 400 (0-900) /uL Eos # (Auto) 0 (0-450) /uL Baso # (Auto) 0 (0-100) /uL Sodium 137 (137-145) mmol/L Potassium 4.3 (3.4-5.1) mmol/L Chloride 102 (98-107) mmol/L Carbon Dioxide 28 (22-32) mmol/L BUN 16 (7-17) mg/dL Creatinine 0.70 (0.52-1.04) mg/dL Estimated GFR > 60 (>60) mL/min BUN/Creatinine Ratio 22.9 H (6-22) Glucose 94 (70-100) mg/dL Calcium 10.1 (8.4-10.2) mg/dL Total Bilirubin 1.3 (0.2-1.3) mg/dL AST 17 (14-36) IU/L ALT 12 (<35) IU/L Alkaline Phosphatase 50 (38-126) U/L Total Protein 7.7 (6.3-8.2) g/dL Albumin 4.7 (3.5-5.0) g/dL Globulin 3.0 (1.7-4.1) g/dL Albumin/Globulin Ratio 1.6 (1.0-2.8) Lipase 111 (23-300) U/L Urine RBC None seen (0-5/HPF) Urine WBC 1-5/hpf (0-5/HPF) Ur Squamous Epith Cells 1-5 /hpf D (0-5/HPF) Urine Bacteria None seen (None) Ur Culture Indicated? Cult not indicated Point of care testing: Point of Care Testing Test Results Negative Urine Dip Bedside Urine Glucose Negative Bedside Urine Bilirubin - Negative Bedside Urine Ketone - Negative Urine Specific [place] 1.015 Bedside Urine Occult Blood - Negative Bedside Urine pH 6.0 Bedside Urine Protein - Negative Bedside Urine Urobilinogen - Negative Bedside Urine Nitrite - Negative MDM Narrative Medical decision making narrative: 32-year-old female with past medical history ovarian cysts presents to the ED with worsening abdominal pain. Physical exam is reassuring for benign abdomen and no CVA tenderness. Will obtain CT abdomen pelvis since patient is requesting it. Will obtain routine labs. Will reassess. CT abdomen pelvis and labs without acute findings. Unclear etiology of patient's symptoms. Recommend follow-up with PCP. Patient discharged home with ED return precautions. Patient verbalized understanding. Medical records reviewed: Yes <Ashley Patino, - Last Filed: 08/12/22 20:57> Lab Data Labs: Lab Results 08/12/22 08/12/22 08/12/22 Range/Units 13:00 15:20 15:20 WBC 8.3 (4.5-11.0) X10^3/uL RBC 4.13 (4.0-5.2) X10^6/uL Hgb 13.1 (12.0-16.0) g/dL Hct 37.8 (36-46) % MCV 91.7 (80-100) fL MCH 31.7 (26-34) PG MCHC 34.6 (30-36) % RDW 12.7 (11.6-14.8) % Plt Count 247 (150-400) X10^3/uL Neut % (Auto) 71.0 (50-75) % Lymph % (Auto) 24.2 L (25-40) % [place] % (Auto) 4.4 (3-14) % Eos % (Auto) 0.3 L (2-4) % Baso % (Auto) 0.1 (0-2) % Neut # (Auto) 5900 (6624-1388) /uL Lymph # (Auto) 2000 (7553-6418) /uL [place] # (Auto) 400 (0-900) /uL Eos # (Auto) 0 (0-450) /uL Baso # (Auto) 0 (0-100) /uL Sodium 137 (137-145) mmol/L Potassium 4.3 (3.4-5.1) mmol/L Chloride 102 (98-107) mmol/L Carbon Dioxide 28 (22-32) mmol/L BUN 16 (7-17) mg/dL Creatinine 0.70 (0.52-1.04) mg/dL Estimated GFR > 60 (>60) mL/min BUN/Creatinine Ratio 22.9 H (6-22) Glucose 94 (70-100) mg/dL Calcium 10.1 (8.4-10.2) mg/dL Total Bilirubin 1.3 (0.2-1.3) mg/dL AST 17 (14-36) IU/L ALT 12 (<35) IU/L Alkaline Phosphatase 50 (38-126) U/L Total Protein 7.7 (6.3-8.2) g/dL Albumin 4.7 (3.5-5.0) g/dL Globulin 3.0 (1.7-4.1) g/dL Albumin/Globulin Ratio 1.6 (1.0-2.8) Lipase 111 (23-300) U/L Urine RBC None seen (0-5/HPF) Urine WBC 1-5/hpf (0-5/HPF) Ur Squamous Epith Cells 1-5 /hpf D (0-5/HPF) Urine Bacteria None seen (None) Ur Culture Indicated? Cult not indicated Point of care testing: Point of Care Testing Test Results Negative Urine Dip Bedside Urine Glucose Negative Bedside Urine Bilirubin - Negative Bedside Urine Ketone - Negative Urine Specific [place] 1.015 Bedside Urine Occult Blood - Negative Bedside Urine pH 6.0 Bedside Urine Protein - Negative Bedside Urine Urobilinogen - Negative Bedside Urine Nitrite - Negative Discharge Plan Departure Patient Disposition: Home Clinical Impression: Abdominal pain Instructions: DI for Abdominal Pain-Adult Activity Restrictions/Additional Instructions: You were evaluated in the ED today for lower abdominal pain. Your labs, CT abdomen pelvis are without acute findings today to explain your symptoms. Please follow-up with your PCP for further evaluation. Return to the ED if you have worsening abdominal pain, persistent vomiting. Prescriptions: No Action No Known Home Medications Referrals: Miscellaneous,Doctor, [Primary Care Provider] - Stand Alone Forms: Patient Portal/API <Ashley Patino DO - Last Filed: 08/12/22 20:57> Cosign ED Attending Connor Attestation: I was immediately available in the department for consultation. Documentation has been reviewed.
--- NOTE | 2022-08-12 15:44 | DI.CT.S_ITS ---
PROCEDURE: CT ABDOMEN PELVIS W CON INDICATIONS: abd pain TECHNIQUE: After the administration of intravenous contrast, axial sections acquired from the lung bases to the pubic symphysis. Coronal and sagittal reformats were performed. For radiation dose reduction, the following was used: automated exposure control, adjustment of mA and/or kV according to patient size. COMPARISON: [facility], CT, CT ABDOMEN PELVIS W CON, 09/16/2017, 17:33. FINDINGS: Image quality: Excellent. Lung bases: Unremarkable. Heart: No significant findings. ABDOMEN: Liver: Unremarkable. Gallbladder: Within normal limits. Biliary ducts: Unremarkable. Pancreas: Unremarkable. Spleen: Unremarkable. Adrenal Glands: Unremarkable. Kidneys and Ureters: Nonobstructing stones are seen in midpole of right kidney measures up to 6 mm in size. No hydronephrosis or hydroureter. Stomach and Bowel: There is no bowel obstruction or abnormal bowel wall thickening. No mesenteric fat stranding. No abscess collection. Peritoneum: No abnormal intraperitoneal fluid. No free air. Ventral Wall: No hernias. Abdominal Nodes: No retroperitoneal or mesenteric adenopathy by size criteria. Vessels: Aorta and inferior vena cava are normal in size. PELVIS: Pelvic Organs: Fluid distending endometrium is noted. No gross abnormality is seen in bilateral ovaries. Bladder: Unremarkable. Pelvic Nodes: No enlarged lymph nodes. Miscellaneous: No hernias are seen. Bones: No suspicious bony lesions. No acute vertebral body compression fracture. Degenerative disc disease at L4-5 and L5-S1 levels are seen. IMPRESSION: 1. No acute inflammatory process is seen in abdomen or pelvis. No abscess collection. No free fluid or free air. 2. Fluid within endometrium. No gross abnormality is seen in uterus and bilateral ovaries. 3. Nonobstructing right renal calculi. No hydronephrosis or hydroureter. Normal appearing urinary bladder. Dictated by: Gomez Carmichael M.D. on 08/12/2022 at 16:47 Approved by: Gomez Carmichael M.D. on 08/12/2022 at 16:52
[2022-08-12 15:46] LABS: Add Manual Diff / Slide Review NO; Basophils Absolute Auto 0 /uL (0-100); Basophils Percent Auto 0.1 % (0-2); Eosinophils Absolute Auto 0 /uL (0-450); Eosinophils Percent Auto 0.3 % (2-4); Hematocrit 37.8 % (36-46); Hemoglobin 13.1 g/dL (12.0-16.0); Lymphocytes Absolute Auto 2000 /uL (1100-4500); Lymphocytes Percent Auto 24.2 % (25-40); Mean Corpuscular HGB Conc 34.6 % (30-36); Mean Corpuscular Hemoglobin 31.7 PG (26-34); Mean Corpuscular Volume 91.7 fL (80-100); Monocytes Absolute Auto 400 /uL (0-900); Monocytes Percent Auto 4.4 % (3-14); Neutrophils Absolute Auto 5900 /uL (1500-7000); Platelet Count 247 X10^3/uL (150-400); Red Blood Cell Count 4.13 X10^6/uL (4.0-5.2); Red Cell Distribution Width 12.7 % (11.6-14.8); White Blood Cell Count 8.3 X10^3/uL (4.5-11.0)
[2022-08-12 15:52] LABS: Alanine Aminotransferase 12 IU/L (<35); Albumin 4.7 g/dL (3.5-5.0); Albumin Globulin Ratio 1.6 (1.0-2.8); Alkaline Phosphatase 50 U/L (38-126); Aspartate Aminotransferase 17 IU/L (14-36); BUN Creatinine Ratio 22.9 (6-22); Bilirubin Total 1.3 mg/dL (0.2-1.3); Blood Urea Nitrogen 16 mg/dL (7-17); Calcium 10.1 mg/dL (8.4-10.2); Carbon Dioxide 28 mmol/L (22-32); Chloride 102 mmol/L (98-107); Estimated Glomerular Filt Rate > 60 mL/min (>60); Glucose 94 mg/dL (70-100); HEMOLYSIS < 15 (0-50); Lipase 111 U/L (23-300); Potassium 4.3 mmol/L (3.4-5.1); Sodium 137 mmol/L (137-145); Total Protein 7.7 g/dL (6.3-8.2)
== END 2022-08-12 17:11 | disposition home or self-care (01) ==
PROVIDERS: Emergency Medicine; Emergency Provider Student in an Organized Health Care Education/Training Program
DX: R10.30 Lower abdominal pain, unspecified (principal)
CPT/HCPCS: 36415; 74177; 80053; 81003; 81015; 81025; 83690; 85025; 99284; Q9967

== ENCOUNTER → 2022-10-14 15:04 | Outpatient (CLI) | payer OTHER, SELFPAY ==
--- NOTE | 2022-10-14 15:05 | DI.US.S_ITS ---
PROCEDURE: US PELVIC COMPLETE INDICATIONS: PELVIC PAIN X [address] H/O LT DERMOID REMOVAL. TECHNIQUE: Real-time scanning was performed of the pelvic organs, with image documentation. Additional endovaginal scanning was necessary due to incomplete visualization of the adnexal and endometrial structures by transabdominal scanning. COMPARISON: [facility], , US PELVIC COMPLETE, 11/06/2021, 10:16. FINDINGS: Uterus: Uterus is anteverted and normal in size at 9.5 x 6.8 x 5.8 cm. The myometrium is homogeneous. The endometrium measures 19 mm combined thickness. The endometrium echo complex is thickened and heterogeneous with complex fluid. Questionable arcuate morphology. Normal vascularity. Ovaries: The right ovary measures 4.2 x 3.3 x 1.9 cm, with a calculated ovarian volume of 13.7 cc. The left ovary measures 2.8 x 2.3 x 3.1 cm, with a calculated ovarian volume of 7.0 cc. The ovaries have a normal sonographic appearance. Less than 12 follicles can be seen in each ovary. No adnexal masses are seen. History of partial left oophorectomy. Other: No pathologic free abdominal or pelvic fluid. IMPRESSION: 1. Thickened endometrial echo complex measuring 19 mm with small endometrial fluid. Vascularity is within normal limits. Consider repeat ultrasound or tissue sampling. 2. Possible arcuate morphology of the endometrium. If clinically indicated, gynecologic MRI may be of value for further evaluation. 3. History of partial left oophorectomy. Otherwise, the ovaries are normal in appearance. We strive to produce accurate, complete, and clear reports of imaging services. To assist us in improving patient care, this report was composed using standard report templates and voice recognition software. Therefore, it may contain abnormal punctuation, insertions and/or omissions. Occasional wrong-word or sound-alike substitutions may occur. Though we review the report and make efforts to correct it, we do recommend that the report be read carefully in proper context to recognize any text inaccuracies. Dictated by: Vikram Milner M.D. on 10/15/2022 at 10:33 Approved by: Vikram Milner M.D. on 10/15/2022 at 10:40
== END ==
PROVIDERS: PCP Family Medicine; Referring Provider Specialist; Visit Provider Specialist
DX: R10.2 Pelvic and perineal pain (principal); R93.89 Abnormal findings on diagnostic imaging of other specified body structures
CPT/HCPCS: 76830; 76856

== ENCOUNTER → 2022-10-31 14:35 | Outpatient (CLI) | payer OTHER, SELFPAY ==
[2022-10-31 16:22] LABS: Progesterone, Total 0.75 ng/mL
[2022-10-31 16:38] LABS: Estradiol, Total 180.1 pg/mL
== END ==
PROVIDERS: PCP Family Medicine; Referring Provider Obstetrics & Gynecology; Visit Provider Obstetrics & Gynecology
DX: N95.1 Menopausal and female climacteric states (principal)
CPT/HCPCS: 36415; 82670; 84144

== ENCOUNTER 2022-12-15 06:43 | Day surgery (SDC) | payer OTHER, SELFPAY ==
[2022-12-10 10:40] VITALS: BMI 27.2
[2022-12-15] VITALS (7 sets, daily range): BP systolic 111–126; BP diastolic 67–76; PULSE 74–95; RESP 14–19; TEMP 36.4–36.7; O2SAT 99–100; BMI 27.2
--- NOTE | 2022-12-15 | PATH_ITS ---
[facility] Accession Number: [id number] No. of containers..01 Tissue . 01 Material submitted: . endometrium - ENDOMETRIAL CURETTINGS . 01 Diagnosis: Endometrium, Curettings: Secretory phase endometrium. Fragments with features suggestive of polyp. Negative for significant cytologic atypia, hyperplasia, and malignancy. MRV 12/18/2022 1551 Local . 01 Electronically signed: . Leslie Bustamante MD, Pathologist NPI- [id number] . 01 Gross description: . ENDOMETRIAL CURETTINGS: Received in formalin are minute fragments of mucoid and hemorrhagic material measuring 1.3 x 1.3 x 0.4 cm in aggregate. Submitted in toto in 1 cassette. /KAROL 12/16/2022 2310 Local . 01 Pathologist provided ICD-10: N92.0 . 01 CPT . 190710 Specimen Comment: A courtesy copy of this report has been sent to [phone] Performed at: 01 [facility] [address] [place] [address] Suite [facility], [place], [place] [id number] MD Tyler Murrieta MD Phone: [phone]
--- NOTE | 2022-12-15 07:19 | SUR.OPER ---
Lithotomy on padded OR bed, head on pillow, arms secured on padded arm boards at <90 degrees abduction. Legs secured in padded yellow fins stirrups.
[2022-12-15] MEDS: SCOPOLAMINE 1 PATCH TOP (07:20)
[2022-12-15] MEDS: LACTATED RINGERS 1,000 ML 100 ML IV (07:38)
--- NOTE | 2022-12-15 07:49 | PM.PREOP ---
Pre-operative Note Interval Note History & Physical reviewed/Exam performed by Physician: Yes Changes to H&P: Yes H&P completed within 30 days and has changed as indicated here:: 11/20/22 Procedure changed to D&C hysteroscopy with Novasure endometrial ablation
[2022-12-15] MEDS: ACETAMINOPHEN IV 1,000 MG/100 ML VIAL 400 MG IV (08:00)
--- NOTE | 2022-12-15 08:46 | PM.GYNOP.1 ---
Operative Date/Time/Diagnoses Date of procedure: 12/15/22 Time of procedure: 08:46 Pre-op diagnosis: Menorrhagia Post-op diagnosis: same Procedure & Clinicians Procedure: Procedures Operation Date: 12/15/22 07:45 Actual Procedure Side Surgeon p Hysteroscopy w/ Novasure Ablation & Endometrial biopsy Mari Mir MD Indications: 32-year-old 4 para 3 with persistent menorrhagia Surgeon: Mari Mir Anesthesia Type: General (LMA) Operative Notes Findings: 8 week size anteverted uterus Both fallopian tube ostia observed Thickened endometrium on the anterior fundal wall of the uterus Closure Type: not applicable Specimen(s): endometrial curettings Estimated blood loss (mL): 10 Blood products transfused: none Procedure in detail: Informed consent was obtained. The patient was taken to the operating room where she was placed in the dorsal supine position. After adequate LMA general anesthesia was achieved, she was placed in the dorsal lithotomy position, and prepped and draped in the usual sterile fashion. A time-out was performed. A bivalve speculum was placed into the vagina and the anterior lip of the cervix was grasped with a single-tooth tenaculum. The cervical os was sequentially dilated to the # 9 Hegar dilator. The hysteroscope passed easily into the endometrial cavity. Both fallopian tube ostia were observed. There was a thickened endometrium on the anterior wall of the uterus at the fundus. The hysteroscope was removed. Sharp curettage was performed yielding a large amount of endometrial curettings. The curette was removed from the uterus. The uterus was measured from the internal os to the fundus and measured 5 cm. This was set on the NovaSure catheter and the generator. The NovaSure catheter passed easily into the endometrial cavity and was opened. The width of the uterus was 4.8 cm. This was set on the generator. This indicated a power of 132 w. The cervix was capped, the cavity assessment was performed and passed. The cycle was initiated and lasted 1 minute and 8 seconds. The NovaSure catheter was closed, the cervix was uncapped, and the catheter was removed from the uterus without difficulty. The single-tooth tenaculum was removed from the anterior lip of the cervix. The bivalve speculum was removed from the vagina. Sponge, lap, and instrument counts were correct x2. The patient tolerated the procedure well, and was taken to PACU in stable condition. Complications: none Post-operative Condition: stable Disposition: PACU
== END 2022-12-15 09:25 | disposition home or self-care (01) ==
PROVIDERS: PCP Family Medicine; Referring Provider Obstetrics & Gynecology; Visit Provider Obstetrics & Gynecology
PROC: 0U5B8ZZ Destruction of Endometrium, Via Natural or Artificial Opening Endoscopic (ICD-10-PCS; CPT 58563; principal; 2022-12-15 07:45)
DX: N92.0 Excessive and frequent menstruation with regular cycle (principal)
CPT/HCPCS: 58563; J0131; J1100; J1885; J2405; J2704; J3010

== ENCOUNTER 2024-04-25 06:20 | Day surgery (SDC) | payer OTHER, SELFPAY ==
[2024-04-13 15:19] VITALS: BMI 27.8
[2024-04-25] VITALS (9 sets, daily range): BP systolic 110–133; BP diastolic 62–81; PULSE 73–105; RESP 11–18; TEMP 36.2–36.5; O2SAT 96–100; BMI 26.6
--- NOTE | 2024-04-25 | PATH_ITS ---
[facility] Accession Number: [id number] No. of containers..01 Tissue . 01 Material submitted: . uterus - UTERUS,BILATERAL FALLOPIAN TUBES, LEFT OVARY . 01 Diagnosis: UTERUS, BILATERAL FALLOPIAN TUBES, LEFT OVARY, MORCELLATED HYSTERECTOMY, SALPINGECTOMIES, AND LEFT OOPHORECTOMY: Secretory endometrium without polyps, atypia, hyperplasia, or malignancy. Negative for adenomyosis, on sales representative supervisor sections. Benign ovary with cystic follicles and hemorrhagic corpus luteum cyst. Benign bilateral fallopian tubes and paratubal cysts. MRV 04/27/2024 1820 Local . 01 Electronically signed: . Leslie Bustamante MD, Pathologist NPI- [id number] . 01 Gross description: . Received in formalin labeled uterus, bilateral fallopian tubes, and left ovary, and consists of a 12.5 x 7.0 x 3.8 cm (96 gram) morcellated uterus. Fragments of the uterus are partially surfaced smooth white glistening serosa. The myometrial wall measures up to 1.8 cm in thickness and is dodd and trabeculated. There is a scant amount of attached red-dodd finely granular endometrium which averages 0.2 cm in thickness. Also received in the same container is a detached free-floating, 3.0 x 2.5 x 2.1 cm (12 gram) ovary that has a partially cystic white serosal surface which is further inked blue. Further sectioning of the ovary shows a white homogenous ovarian parenchyma with multple simple, serous fluid-filled unilocular smooth-walled cysts ranging from 0.2 to 0.8 cm in greatest dimension. In addition, there is a 1.5 cm in greatest dimension dodd-brown hemorrhagic corpus luteum. Additionally received in the same container is a detached 3.5 cm in length by 0.4 cm in diameter non-fimbriated segment of fallopian tube that is sectioned to show a 0.2 cm stellate lument. In addition, there is a 1.0 cm in greatest dimension detached simple, unilocular, serous paratubal cyst. A second fallopian tube is not appreciated. . Security Officer sections are submitted as labeled: A1-A2: Full thickness endomyometrium. A3: Security Officer sections of ovary. A4: Security Officer cross-sections of non-fimbriated fallopian tube and detached paratubal cyst. ([id number]) /BASIA 04/27/2024 1820 Local . 01 Pathologist provided ICD-10: N94.6, N80.03, N99.85 . 01 CPT . 538330 Specimen Comment: A courtesy copy of this report has been sent to [phone] Performed at: [address] [facility] [address], [place], [place] [id number] MD Tyler Murrieta MD Phone: [phone]
--- NOTE | 2024-04-25 07:27 | P.HPOB_ITS ---
History of Present Illness History of Present Illness Narrative: Alta Rivero is a 34 year old female 4 para 3 who presents for a laparoscopic supracervical hysterectomy with bilateral salpingectomy due to adenomyosis, severe dysmenorrhea, and post ablation syndrome. [facility] Medical History (Updated 04/15/24 @ 07:12 by Ricarda Wade RN) Eczema Migraines Easy bruisability Surgical History (Updated 04/13/24 @ 15:21 by Emilie Merchant RN) History of hysteroscopy (12/15/22) H/O ovarian cystectomy Social History household members: spouse and children Smoking Status: Current every day smoker alcohol intake: never Meds Home Medications and Allergies Home Medications Medication Instructions Recorded Confirmed Type methocarbamol 500 mg tablet 500 mg PO BEDTIME 02/12/24 04/25/24 History naproxen 500 mg tablet 500 mg PO BID 02/12/24 04/25/24 History Allergies Allergy/AdvReac Type Severity Reaction Status Date / Time No Known Drug Allergies Allergy Verified 04/25/24 07:07 Exam Vital Signs (past 8 hours): - 04/25/24 07:08 Temperature 97.4 F L Pulse Rate 73 Respiratory Rate 18 Blood Pressure 115/80 Pulse Oximetry 100 Oxygen Delivery Method Room Air Oxygen Delivery Method Room Air Narrative Exam Narrative: HEENT: No thyromegaly, no anterior cervical or supraclavicular lymphadenopathy. Lungs:Clear to auscultation bilaterally, no wheezes. Cardiovascular: Regular rate and rhythm, no murmurs, rubs, or gallops. Abdomen: Well-healed laparoscopy scars. No hepatosplenomegaly. No masses palpable. External genitalia: Normal Vagina: Normal Cervix: Normal Bimanual exam: 8 Week size anteverted uterus. Mobile. No adnexal masses or tenderness Extremities: No edema Assessment & Plan Assessment & Plan narrative: Assessment: 34-year-old 4 para 3 with adenomyosis, severe dysmenorrhea, and post ablation syndrome Plan: [facility] with bilateral salpingectomy The risks, benefits, and alternatives to the procedure were explained to the patient. The risks including bleeding, infection, injury to the bowel, bladder, or ureters. She understands these risks and agrees to proceed. A full par Q was held and consent form was signed. Time-Based Coding :: [TOTAL MINUTES] spent with patient and on the chart (including review of chart, obtaining history, exam, reviewing outside data, placing orders, documenting exam and treatment plan, and counseling patient) on [DATE].
--- NOTE | 2024-04-25 07:29 | PM.PREOP ---
Pre-operative Note Interval Note History & Physical reviewed/Exam performed by Physician: Yes Changes to H&P: No H&P completed within 30 days and has changed as indicated here:: 04/25/24
[2024-04-25] MEDS: SCOPOLAMINE 1 PATCH TOP (07:30)
[2024-04-25] MEDS: ACETAMINOPHEN 325 MG TABLET 975 MG PO (07:30)
[2024-04-25] MEDS: CEFAZOLIN 2 GM/100 ML PREMIX 100 ML IV (07:35)
[2024-04-25] MEDS: LACTATED RINGERS 1,000 ML 42 ML IV ×2 (07:36→09:12)
--- NOTE | 2024-04-25 08:27 | SUR.OPER ---
Lithotomy on padded OR bed. [place] Pad Positioner under torso. Head on pillow, arms padded and tucked at sides. Legs secured in padded yellow fins stirrups.
[2024-04-25] MEDS: BUPIVACAINE 0.5% W/ EPI (PF) 30 ML VIAL INJ (08:57)
[2024-04-25] MEDS: ROPIVACAINE 0.2% PF 2 MG/ML 20ML AMP 20 ML INJ (09:47)
--- NOTE | 2024-04-25 10:21 | P.OP_ITS ---
Operative Date/Time/Diagnoses Date of procedure: 04/25/24 Time of procedure: 10:21 Pre-op diagnosis: Adenomyosis Severe dysmenorrhea Post ablation syndrome Post-op diagnosis: same Procedure & Clinicians Procedure: Procedures Operation Date: 04/25/24 07:45 Actual Procedure Side Surgeon p Laparoscopic Supracervical Hysterectomy with bilateral salpingectomy and left oophrectomy, with extensive lysis of adhesions aMri Mir MD Indications: 34-year-old 4 para 3 status post an endometrial ablation with severe dysmenorrhea. Adenomyosis on ultrasound Post ablation syndrome Surgeon: Mari Mir Finishing Machine Tender: Sharon Galo Anesthesia Type: General and Local Operative Notes Findings: 10 week size ?stuck? uterus Uterine to bladder adhesions Thin uterine to right adnexal adhesions Thick ovary to uterine adhesions on the left Normal tubes bilaterally Normal liver Normal appendix Posterior uterine to cul-de-sac adhesions Closure Type: primary Specimen(s): right tube, left tube & ovary and uterus Applied: catheter (Removed at the end of the case) Estimated blood loss (mL): 50 Procedure in detail: The patient was taken to the operating room where she was placed in the dorsal supine position. After adequate general endotracheal anesthesia was achieved, she was placed in the dorsal lithotomy position, and prepped and draped in the usual sterile fashion. A time-out was performed. A bivalve speculum was placed into the vagina and the anterior lip of the cervix was grasped with a single- tooth tenaculum. The cervical os was sequentially dilated until the Zumi uterine manipulator could pass easily into the endometrial cavity. The single- tooth tenaculum was removed from the anterior lip of the cervix. The bivalve speculum was removed from the vagina. Attention was turned to the abdomen where 6 cc of 0.5% Marcaine with epinephrine were injected in the umbilical fold. A 5 mm incision was made. The Veress needle was placed into the peritoneal cavity, and its placement confirmed by aspiration and drop test. The abdominal cavity was insufflated with 4 point once L of CO2. The Veress needle was removed, and a 5 mm trocar was placed under direct visualization. The balloon cuff was inflated. Two other incisions were made 4 cm lateral to the midline at the level of the umbilicus after 6 cc of 0.5% Marcaine with epinephrine were injected. Two 5 mm cuffed trocar were placed under direct visualization and the balloons inflated. Initial inspection of the pelvis revealed dense adhesions between the bladder and the uterus as well as dense adhesions between the left ovary in the uterus. There were filmy adhesions on the right adnexa. Using the endo Devika with cautery the filmy adhesions were taken down. The right tube was grasped with an atraumatic grasper. The mesosalpinx was cauterized and cut with the power seal, all the way down to the cornua of the uterus. The cornua was grasped with an atraumatic grasper. The round ligament and broad ligament were cauterized and cut. The plane between the bladder and the uterus was thickened. The left cornua of the uterus was grasped with an atraumatic grasper. With tension an attempt was made to separate the left ovary from the uterus. There was bleeding noted on both the uterus and the ovary. The ovary was very adherent. The filmy adhesions were taken down with the endo Devika with cautery. The thicker adhesions were taken down using the power seal. The ovary could not be completely freed from the uterus and a decision was made to remove the ovary. The tube was grasped with an atraumatic grasper. Using the power seal, the infundibulopelvic ligament on the left side was cauterized and cut. The round ligament and broad ligament were cauterized and cut. A plane was developed between the uterus and the bladder and this was taken down with the power seal all the way across to the right side. The uterine arteries on the left side were extensively cauterized with the power seal. The uterine a rteries were then cauterized on the patient's right side. The Chiara loop was placed around the uterus, tubes, and left ovary and cinched 2 cm above the uterosacral ligaments. The Zumi uterine manipulator was removed from the uterus. The uterus was amputated. There was no bleeding noted on the cervix. The endocervical canal was extensively cauterized with the spatula cautery. A fourth incision was made 2 fingerbreadths above the pubic symphysis after 6 cc of 0.5% Marcaine with epinephrine were injected. A 12 mm incision was made. A 12 mm trocar was placed under direct visualization. The large endobag was placed through the suprapubic trocar and the uterus, tubes, and left ovary were placed into the bag. The trocar was removed and the bag edges were brought up through the skin incision. The fascia was extended using the Jenkins scissors on either side. The uterus was grasped with a Edith. The Timmy was placed into the endobag. The uterus, tubes, and left ovary were morcellated in approximately 20 pieces. The bag with the Timmy was removed from the peritoneal cavity. The fascia was reapproximated with 0 Vicryl in a running fashion. The abdomen is was re-insufflated with carbon dioxide gas. There was a small amount of bleeding noted from the posterior edge of the cervix and this was cauterized with the spatula for hemostasis. The pelvis was copiously irrigated with warm normal saline. There was no bleeding noted. 20 cc of 0.2% ropivacaine were placed into the pelvis. Where the bladder was taken down off of the uterus there was a small amount of oozing and FloSeal was placed for hemostasis. The instruments were removed from the abdomen. The CO2 was allowed to escape. The suprapubic incision was closed on the subcutaneous layer with 2 simple interrupted sutures with 3-0 Vicryl. All of the incisions were closed with 4-0 Monocryl in a subcuticular fashion. Steri-Strips and Allevyn dressings were placed. The sponge stick was removed from the vagina. The Alanis catheter was removed from the bladder. Sponge, lap, and instrument counts were correct x2. The patient tolerated the procedure well, and was taken to PACU in stable condition. Patient had 300 cc of clear yellow urine in the Alanis bag. Complications: none Post-operative Condition: stable Disposition: PACU Plan for aftercare: Home after recovery
[2024-04-25] MEDS: ONDANSETRON 4 MG/2 ML INJ IV (11:39)
== END 2024-04-25 12:23 | disposition home or self-care (01) ==
LOC: OR 06:21 → AC 06:23
PROVIDERS: Referring Provider Obstetrics & Gynecology; Visit Provider Obstetrics & Gynecology
PROC: 0UT94ZL Resection of Uterus, Supracervical, Percutaneous Endoscopic Approach (ICD-10-PCS; CPT 58542; principal; 2024-04-25 07:45)
DX: N80.03 Adenomyosis of the uterus (principal); N94.6 Dysmenorrhea, unspecified; N99.85 Post endometrial ablation syndrome; F17.210 Nicotine dependence, cigarettes, uncomplicated; N73.6 Female pelvic peritoneal adhesions (postinfective); N83.12 Corpus luteum cyst of left ovary; N83.8 Other noninflammatory disorders of ovary, fallopian tube and broad ligament
CPT/HCPCS: 58542; 81025; J0690; J1100; J1171; J2250; J2405; J2704; J2795; J3010